=== PATIENT | female | born 1985 | race Caucasian/White ===

== ENCOUNTER 2024-07-03 15:08 | Emergency (ER) | payer MEDICAID ==
[~2024-07-03] VITALS: Ht 160 cm; Wt 82.0 kg
[2024-07-03] MEDS: acetaminophen 325mg tablet PO ONE (17:32)
[2024-07-03 17:46] VITALS: BP 159/89; PULSE 117; RESP 18; TEMP 99.7; O2SAT 98
== END 2024-07-03 17:48 | disposition home or self-care (01) ==
LOC: ER 15:09
DX: B34.9 Viral infection, unspecified (principal); Z20.822 Contact with and (suspected) exposure to COVID-19
CPT/HCPCS: 36415; 87502; 87503; 87811; 99283